=== PATIENT | male | born 1985 | race Caucasian/White ===

== ENCOUNTER 2016-06-22 10:19 | Day surgery (SDC) | payer OTHER ==
[2016-06-22] VITALS (9 sets, daily range): BP systolic 109–130; BP diastolic 51–80; PULSE 61–76; TEMP 97.4–98.5
[~2016-06-22] VITALS: Ht 193 cm; Wt 86.0 kg
[2016-06-22 11:12] LABS: BASO % 0.2 % (0.0-2.0); EOS # 0.1 (0.0-0.7); EOS % 0.5 % (0-4.0); GRAN # 13.1 (1.4-6.5); GRAN % 85.5 % (42.2-75.2); HEMATOCRIT 40.3 % (42.0-52.0); HEMOGLOBIN 14.3 g/dl (13.5-18.0); LYMPH # 1.2 (1.2-3.4); MEAN CELL VOLUME 88 fl (80.0-100.0); MEAN CORPUSCULAR HEMOGLOBIN 31 pg (27.0-31.0); MEAN CORPUSCULAR HGB CONC 36 g/dl (33.0-37.0); MEAN PLATELET VOLUME 9.7 fl (7.4-10.4); MONO # 0.8 (0.1-0.6); MONO % 5.4 % (1.7-9.3); PLATELET COUNT 349 K/mm3 (130-400); RED BLOOD COUNT 4.56 M/mm3 (4.20-5.60); REDCELL DISTRIBUTION WIDTH-CV 11.7 % (11.5-14.5); WHITE BLOOD COUNT 15.3 K/mm3 (4.8-10.8)
[2016-06-22 11:18] LABS: ADJUSTED CALCIUM 9.2 mg/dL (8.4-10.2); ALANINE AMINOTRANSFERASE 35 U/L (21-72); ALBUMIN 4.6 gm/dL (3.5-5.0); ALKALINE PHOSPHATASE 76 U/L (50-136); ANION GAP 12 mmol/L (7-16); BILIRUBIN,TOTAL 1.2 mg/dL (0.0-1.0); BLOOD UREA NITROGEN 13 mg/dL (9-20); CALCIUM 9.7 mg/dL (8.4-10.2); CARBON DIOXIDE 27 mmol/L (22-30); CHLORIDE 102 mmol/L (98-107); CREATININE, serum 1.04 mg/dL (0.66-1.25); GLUCOSE 99 mg/dL (74-106); LIPASE 93 U/L (23-300); SODIUM 141 mmol/L (137-145)
[2016-06-22 11:27] LABS: C-REACTIVE PROTEIN < 0.5 mg/dL (0.0-0.9)
[2016-06-22 11:55] LABS: PH 6 (5-8); SQUAMOUS EPITHELIAL 0-2 /hpf; URINE APPEARANCE Clear; URINE BACTERIA None Seen /hpf; URINE BILIRUBIN Negative (NEGATIVE); URINE BLOOD Negative (NEGATIVE); URINE COLOR Yellow; URINE GLUCOSE Negative (NEGATIVE); URINE KETONE Negative (NEGATIVE); URINE RBC 0-2 /hpf; URINE UROBILINOGEN Negative (NEGATIVE); URINE WBC 0-2 /hpf
[2016-06-23 02:22] VITALS: BP 111/51; PULSE 69; TEMP 97.4
[2016-06-23 05:47] VITALS: BP 115/52; PULSE 61; TEMP 97.6
[2016-06-23 10:22] VITALS: BP 104/853; PULSE 67; TEMP 97.8
== END 2016-06-23 11:00 | disposition home or self-care (01) ==
LOC: COL.ER 10:19 → SURG 13:36 → SDCO 13:36 → SURG 13:37 → SDCO 06-23 11:00
PROVIDERS: Emergency Medicine
DX: K35.80 Unspecified acute appendicitis (principal)
CPT/HCPCS: OP; A9284; J1170; J1885; J2270; J2405; J2543; J2704; J3010; J7030; J7050; Q9967